=== PATIENT | female | born 1940 | race Hispanic/Latino ===

== ENCOUNTER 2018-08-20 21:24 | Emergency (ER) | payer MEDICARE ==
[~2018-08-20] VITALS: Ht 149.9 cm; Wt 73.0 kg
[2018-08-20 21:47] LABS: HEMATOCRIT 38.9 % (37.0-47.0); IMMATURE GRANULOCYTES 0.3 % (0.0-5.0); MEAN CELL VOLUME 88.8 fL CALC (80.0-100.0); MEAN CORPUSCULAR HGB 29.7 pG CALC (26.0-32.0); MEAN CORPUSCULAR HGB CONC 33.4 g/L CALC (32.0-36.0); NEUT# 5.34 thou/uL (2.00-7.15); RED BLOOD COUNT 4.38 mill/uL (4.20-5.60); RED CELL DISTRI WIDTH 12.7 % (11.5-15.5)
[2018-08-20 21:58] LABS: ALBUMIN 4.4 g/dL (3.2-5.0); ALKALINE PHOSPHATASE 168 u/l (38-126); ANION GAP 18 (6-22 (CALC)); BILIRUBIN, TOTAL 0.3 mg/dL (0.0-1.4); BUN 27 mg/dL (8-23); BUN/CREATININE RATIO 43 (12-20 (CALC)); CARBON DIOXIDE 27 mmol/l (22-30); CHLORIDE 99 mmol/l (95-108); CREATININE 0.6 mg/dL (0.5-1.0); GFR > 60 ML/MIN (>=60 (CALC)); GFR FOR AFR.AMER. > 60 ML/MIN (>=60 (CALC)); POTASSIUM 4.7 mmol/l (3.5-5.1); SGOT/AST 19 u/l (9-36); SODIUM 139 mmol/l (137-146); TOTAL PROTEIN 7.6 g/dL (6.3-8.2)
[2018-08-20 22:00] LABS: ACT PARTIAL THROMBO TIME 28.5 SECONDS (20.0-32.5)
[2018-08-20 22:10] LABS: MYOGLOBIN 33 ng/mL (0 - 62)
[2018-08-20 22:10] LABS: GFR > 60 ML/MIN (>=60 (CALC)); GFR FOR AFR.AMER. > 60 ML/MIN (>=60 (CALC))
[2018-08-20] MEDS ORDERED: GLIPIZIDE XL5 MG PO (22:12)
[2018-08-20] MEDS ORDERED: ENALAPRIL10 MG PO (22:13)
[2018-08-20] MEDS ORDERED: METFORMIN HYD1000 MG PO (22:14)
[2018-08-20] MEDS ORDERED: MOXIFLOXACIN OU (22:17)
[2018-08-20] MEDS ORDERED: (None)1 % OU (22:18)
[2018-08-20 23:38] LABS: URINE BILIRUBIN - DIPSTICK NEGATIVE (NEGATIVE); URINE BLOOD DIPSTICK NEGATIVE (NEGATIVE); URINE COLOR YELLOW; URINE GLUCOSE - DIPSTICK >=1000 mg/dL (NEGATIVE); URINE KETONE NEGATIVE (NEGATIVE); URINE LEUK ESTERASE NEGATIVE (NEGATIVE); URINE NITRITE - DIPSTICK NEGATIVE (Negative); URINE PROTEIN - DIPSTICK NEGATIVE (NEG-TRACE); URINE UROBILINOGEN - DIPSTICK 0.2 E.U./dL (0.2)
[2018-08-20 23:45] VITALS: BP 160/75
== END 2018-08-20 23:45 | disposition short-term general hospital (02) ==
LOC: ED 21:24
PROVIDERS: Emergency Medicine
DX: I63.9 Cerebral infarction, unspecified (principal); R29.810 Facial weakness; I10 Essential (primary) hypertension; E11.65 Type 2 diabetes mellitus with hyperglycemia; Z79.84 Long term (current) use of oral hypoglycemic drugs; R29.701 NIHSS score 1
CPT/HCPCS: Q9967

== ENCOUNTER 2018-10-26 16:56 | Emergency (ER) | payer MEDICARE ==
[~2018-10-26] VITALS: Ht 149.9 cm; Wt 80.0 kg
[~2018-10-26 16:56] MED LIST: (None)1 % OU; ENALAPRIL10 MG PO; GLIPIZIDE XL5 MG PO; METFORMIN HYD1000 MG PO; MOXIFLOXACIN OU
[2018-10-26 17:35] LABS: HEMATOCRIT 33.1 % (37.0-47.0); IMMATURE GRANULOCYTES 0.4 % (0.0-5.0); MEAN CELL VOLUME 89.9 fL CALC (80.0-100.0); MEAN CORPUSCULAR HGB 29.9 pG CALC (26.0-32.0); MEAN CORPUSCULAR HGB CONC 33.2 g/L CALC (32.0-36.0); NEUT# 5.07 thou/uL (2.00-7.15); RED BLOOD COUNT 3.68 mill/uL (4.20-5.60); RED CELL DISTRI WIDTH 13.2 % (11.5-15.5)
[2018-10-26 17:52] LABS: ALBUMIN 3.7 g/dL (3.2-5.0); ALKALINE PHOSPHATASE 136 u/l (38-126); ANION GAP 14 (6-22 (CALC)); BILIRUBIN, TOTAL 0.3 mg/dL (0.0-1.4); BUN 24 mg/dL (8-23); BUN/CREATININE RATIO 42 (12-20 (CALC)); CARBON DIOXIDE 22 mmol/l (22-30); CHLORIDE 107 mmol/l (95-108); CREATININE 0.6 mg/dL (0.5-1.0); GFR > 60 ML/MIN (>=60 (CALC)); GFR FOR AFR.AMER. > 60 ML/MIN (>=60 (CALC)); POTASSIUM 4.5 mmol/l (3.5-5.1); SGOT/AST 30 u/l (9-36); SODIUM 138 mmol/l (137-146); TOTAL PROTEIN 6.4 g/dL (6.3-8.2)
[2018-10-26 18:04] LABS: MYOGLOBIN 30 ng/mL (0 - 62)
[2018-10-26 18:37] LABS: URINE BILIRUBIN - DIPSTICK NEGATIVE (NEGATIVE); URINE BLOOD DIPSTICK NEGATIVE (NEGATIVE); URINE COLOR YELLOW; URINE GLUCOSE - DIPSTICK >=1000 mg/dL (NEGATIVE); URINE KETONE NEGATIVE (NEGATIVE); URINE LEUK ESTERASE NEGATIVE (NEGATIVE); URINE NITRITE - DIPSTICK NEGATIVE (Negative); URINE PROTEIN - DIPSTICK NEGATIVE (NEG-TRACE); URINE UROBILINOGEN - DIPSTICK 0.2 E.U./dL (0.2)
[2018-10-26] MEDS ORDERED: MECLIZINE25 MG PO (18:44)
[2018-10-26 19:02] VITALS: BP 134/71
== END 2018-10-26 19:12 | disposition home or self-care (01) ==
LOC: ED 16:56
PROVIDERS: Family Medicine
DX: R42 Dizziness and giddiness (principal); E11.65 Type 2 diabetes mellitus with hyperglycemia; I10 Essential (primary) hypertension; Z86.73 Personal history of transient ischemic attack (TIA), and cerebral infarction without residual deficits; Z79.84 Long term (current) use of oral hypoglycemic drugs

== ENCOUNTER 2020-07-11 18:20 | Emergency (ER) | payer MEDICARE ==
[~2020-07-11] VITALS: Ht 149.9 cm; Wt 63.0 kg
[~2020-07-11 18:20] MED LIST changes: +LANTUS SOL100 UNIT/M SC; +MECLIZINE25 MG PO; +PRAVASTATIN20 MG PO
[2020-07-11 18:53] LABS: HEMATOCRIT 36.7 % (37.0-47.0); HEMOGLOBIN 12.2 g/dl (12.0-16.0); IMMATURE GRANULOCYTES 0.8 % (0.0-5.0); MEAN CELL VOLUME 87.4 fL CALC (80.0-100.0); MEAN CORPUSCULAR HGB CONC 33.2 g/dL CAL (32.0-36.0); NEUT# 7.68 thou/uL (2.00-7.15); RED BLOOD COUNT 4.2 mill/uL (4.20-5.60); RED CELL DISTRI WIDTH 12.4 % (11.5-15.5)
[2020-07-11 19:03] LABS: URINE BILIRUBIN - DIPSTICK NEGATIVE (NEGATIVE); URINE BLOOD DIPSTICK TRACE-LYSED (NEGATIVE); URINE COLOR YELLOW; URINE GLUCOSE - DIPSTICK 250 mg/dL (NEGATIVE); URINE KETONE NEGATIVE (NEGATIVE); URINE LEUK ESTERASE NEGATIVE (NEGATIVE); URINE PROTEIN - DIPSTICK 30 mg/dL (NEG-TRACE); URINE SPECIFIC GRAVITY 1.015; URINE UROBILINOGEN - DIPSTICK 0.2 E.U./dL (0.2)
[2020-07-11 19:05] LABS: ALKALINE PHOSPHATASE 165 u/l (38-126); BUN 27 mg/dL (8-23); BUN/CREATININE RATIO 39 (12-20 (CALC)); CARBON DIOXIDE 26 mmol/l (22-30); CHLORIDE 96 mmol/l (95-108); CREATININE 0.7 mg/dL (0.5-1.0); GFR > 60 ML/MIN (>=60 (CALC)); GFR FOR AFR.AMER. > 60 ML/MIN (>=60 (CALC)); LIPASE 51 u/l (23-300); POTASSIUM 5.1 mmol/l (3.5-5.1); SGOT/AST 29 u/l (9-36)
[2020-07-11 19:07] LABS: URINE NITRITE - DIPSTICK NEGATIVE (Negative)
[2020-07-11 19:10] LABS: ANION GAP 12 (6-22 (CALC)); BILIRUBIN, TOTAL 0.5 mg/dL (0.0-1.4); SODIUM 129 mmol/l (137-146); TOTAL PROTEIN 7.8 g/dL (6.3-8.2)
[2020-07-11 19:12] LABS: ACT PARTIAL THROMBO TIME 27.7 SECONDS (20.0-32.5); PROTHROMBIN TIME 10.5 SECONDS (9.0-12.5)
[2020-07-11 19:14] LABS: URINE SQUAMOUS EPITHELIAL CELL FEW EPI/hpf (0-FEW); URINE WBC 0-2 WBC/hpf (0-5)
[2020-07-11 19:48] VITALS: BP 131/92
== END 2020-07-11 19:50 | disposition home or self-care (01) ==
LOC: ED 18:20
DX: I10 Essential (primary) hypertension (principal); E11.65 Type 2 diabetes mellitus with hyperglycemia; Z79.4 Long term (current) use of insulin; Z20.822 Contact with and (suspected) exposure to COVID-19

== ENCOUNTER 2020-07-13 20:41 | Observation (INO) | payer MEDICARE ==
[~2020-07-13] VITALS: Ht 149.9 cm; Wt 72.0 kg
--- NOTE | 2020-07-13 20:45 | NUR ---
BY WC TO ROOM. UNSTEADY GAIT
--- NOTE | 2020-07-13 20:45 | NUR ---
PT. TO ROOM 9 VIA W/C WITH C/O BY DAUGHTER THAT HER MOM HAS A WORSENING UNSTEADY GAIT AND VISION PROBLEMS. MD AT BEDSIDE. INITIAL STROKE SCALE IS 1 FOR GAZE PALSY. STROKE ALERT CALLED AT 2050. TO CT SCAN AT 2051.
[2020-07-13 21:12] LABS: HEMATOCRIT 37.4 % (37.0-47.0); HEMOGLOBIN 12.6 g/dl (12.0-16.0); IMMATURE GRANULOCYTES 0.2 % (0.0-5.0); MEAN CELL VOLUME 87.6 fL CALC (80.0-100.0); MEAN CORPUSCULAR HGB 29.5 pG CALC (26.0-32.0); MEAN CORPUSCULAR HGB CONC 33.7 g/dL CAL (32.0-36.0); NEUT# 6.11 thou/uL (2.00-7.15); RED BLOOD COUNT 4.27 mill/uL (4.20-5.60); RED CELL DISTRI WIDTH 12.6 % (11.5-15.5)
--- NOTE | 2020-07-13 21:19 | NUR ---
BP 209/136 MD AWARE, NEW ORDERS RECEIVED.
--- NOTE | 2020-07-13 21:26 | NUR ---
IV APRESOLINE GIVEN PER MD.
[2020-07-13 21:29] LABS: ALBUMIN 4.2 g/dL (3.2-5.0); ALKALINE PHOSPHATASE 158 u/l (38-126); ANION GAP 11 (6-22 (CALC)); BUN 28 mg/dL (8-23); BUN/CREATININE RATIO 40 (12-20 (CALC)); CARBON DIOXIDE 30 mmol/l (22-30); CHLORIDE 97 mmol/l (95-108); CREATININE 0.7 mg/dL (0.5-1.0); GFR > 60 ML/MIN (>=60 (CALC)); GFR FOR AFR.AMER. > 60 ML/MIN (>=60 (CALC)); POTASSIUM 4.5 mmol/l (3.5-5.1); SGOT/AST 35 u/l (9-36); SODIUM 133 mmol/l (137-146); TOTAL PROTEIN 8.2 g/dL (6.3-8.2)
[2020-07-13 21:30] LABS: ACT PARTIAL THROMBO TIME 25.6 SECONDS (20.0-32.5); BILIRUBIN, TOTAL 0.2 mg/dL (0.0-1.4); PROTHROMBIN TIME 10.5 SECONDS (9.0-12.5)
--- NOTE | 2020-07-13 21:44 | NUR ---
BP 104/70 MD AWARE.
--- NOTE | 2020-07-13 22:36 | NUR ---
IN ROOM TO DISCUSS CLINICAL FINDINGS WITH PT. VERBALIZED UNDERSTANDING.
[2020-07-13] MEDS ORDERED: LOSARTAN POTASS25 MG PO (23:19)
--- NOTE | 2020-07-13 23:36 | NUR ---
PT. MADE AWARE OF ADMISSION. VERBALIZED UNDERSTANDING.
--- NOTE | 2020-07-14 00:04 | NUR ---
Admission Note Report Given to: PAULINA HUBER Transported by: Wheelchair X Stretcher Transported with: X Nurse Transporter X Patent IV O2 X Framing Consultant Location: ICU X [facility]
--- NOTE | 2020-07-14 01:10 | NUR ---
PT. TAKEN TO MS FLOOR VIA STRETCHER. NO C/O OFFERED AT THIS TIME.
--- NOTE | 2020-07-14 01:10 | NUR ---
PT BROUGHT TO MED SURG BY [employer] SPANISH TEACHER CECILE AND MED SURG FLOOR CASHIER. WE TRANSFERRED HER FROM THE STRETCHER TO THE BED. PT TOLERATED WELL. SHE C/O PAIN UPON MOVING R.ARM, SENSATIVE TO MOVEMENT IN R.SHOULDER SHE REPORTS. L[employer] SCHO[employer] SPANISH TEACHER DISCUSSED MED HISTORY AND PRESENT COMPLAINTS WITH DAUGHTER WHILE IN THE ED TO PICK PT UP TO TRANSFER TO THE FLOOR. PT ASSESSED AT THIS TIME AND V/S OBTAINED. NEURO'S APPEAR TO BE INTACT, MEDICAL LABORATORY MANAGER ARE MODERATE, BUT EQUAL, EQUAL MOVEMENT TO BLE W/OUT DRIFT. PUPILS EQUAL AND REACTIVE. NO VISIBLE DROOP TO MOUTH AND EYEBROWS APPEAR TO BE SEMETRICAL. PT LOCX4 AT THIS TIME. WILL OBTAIN TRANSLATION FROM CECILE [facility] STAFF NEEDED.
[2020-07-14 01:15] VITALS: BP 162/74
--- NOTE | 2020-07-14 02:02 | NUR ---
PT APPEARS TO BE SLEEPING, APPEARS RELAXED WITH NON-LABORED RESPIRATIONS. LIGHTS TURNED DOWN FOR COMFORT.
--- NOTE | 2020-07-14 02:08 | NUR ---
CALLED TO OBTAIN INITIAL TELEMETRY READING ON PT, SR94 PER ED FERMENTER WINE
--- NOTE | 2020-07-14 02:24 | NUR ---
PT AWAKE WHEN I ENTERED THE ROOM. INSTRUCTIONS FOR NO NEEDLES TO R.ARM DUE TO NERVE PAIN WHEN STUCK IN THAT ARM PER DAUGHTER, DENIES SURGIERS OR LYMPH CONCERNS, REPORTS THAT BP CHECKS ARE OKAY, JUST NO LAB DRAWS TO R.ARM. PILLOW PROVIDED UNDER KNEES PER PT REQUEST FOR COMFORT. PO WATER OFFERED AGAIN AT THIS TIME AND LEFT AT BEDSIDE. PT REMINDED AND ORIENTED TO CALL LIGHT, VERBALIZED UNDERSTANDING, EXTRA COVERS PROVIDED ALSO AT THIS TIME.
[2020-07-14 04:00] VITALS: BP 153/70
--- NOTE | 2020-07-14 05:00 | NUR ---
PT SLEEPING, NO S/O DISTRESS NOTED AT THIS TIME. CALL LIGHT AT SIDE.
--- NOTE | 2020-07-14 06:14 | NUR ---
PT WAS AWAKE WHEN I ENTERED THE ROOM. IV PUMP CLEARED. PT ASKED FOR WATER THAT WAS ON HER BST W/IN REACH. I ATTEMPTED TO HAND IT TO HER, BUT SHE JUST OPENED HER MOUTH AND KEPT HER ARMS UNDER THE COVERS. I ASSISTED PT TO DRINK WATER AND REMINDED HER THAT IT IS W/IN REACH IF SHE NEEDS MORE. REMINDED HER OF THE CALL LIGHT FOR FURTHER ASSISTANCE. CALL LIGHT AT SIDE ON BST.
[2020-07-14 07:09] VITALS: BP 152/90
--- NOTE | 2020-07-14 07:10 | NUR ---
PATIENT LAYING IN BED AT THIS TIME. PATIENT WHEN ASKED IF SHE IS HAVING PAIN PATIENT STATED "NO". SED MIDDLE SCHOOL TEACHER DONE AT THIS TIME. PATIENT LUNG BARAJAS ARE CLEAR THROUGHOUT ALL LUNG BARAJAS. NEURO CHECKS ARE NEGATIVE FOR ANY DEFICITS AT THIS TIME. TELE IS IN PLACE AND BEING MONITORED BY ED. PURWICK IN PLACE AND DRAINING CLEAR YELLOW URINE AT THIS TIME. PATIENT IS PRIMARILY GERMAN SPEAKING BUT CAN UNDERSTAND ROMANIAN. PATIENT BOWEL SOUNDS ARE PRESENT IN ALL FOUR QUADRANTS. PATIENT STATES THAT HER VISION IS NOT "BLURRED" AT THIS TIME. SIDERAILS ARE UP CALL LIGHT WITHIN REACH.
--- NOTE | 2020-07-14 10:37 | NUR ---
PATIENT UP TO CHAIR AT THIS TIME. PATIENT DID ASSIST WITH STANDING AND WAS ASSITED BY THIS NURES AND NURSE AIDE. PATIENT DENIES ANY PAIN AT THIS TIME. CALL LIGHT WITHIN REACH PURWICK IN PLACE.
[2020-07-14 11:29] VITALS: BP 142/70
--- NOTE | 2020-07-14 11:59 | NUR ---
PATIENT SITTING UP IN CHAIR AT THIS TIME EATING LUNCH. CALL LIGHT WITHIN REACH NEURO CHECKS REMAIN NEGATIVE FOR DEFICITS. PATIENT DENIES ANY PAIN.
--- NOTE | 2020-07-14 15:45 | NUR ---
DAUGHTER IN WITH PATIENT AND CALLED THIS NURSE TO CHECK HER MOM'S ACCU-CHECK SHE STATED HER MOTHER SAID SHE IS STARTING TO FEEL "SWEATY". ACCU-CHECK DONE AND BLOOD GLUCOSE WAS RECORDED AT 48. PATIENT WAS SYMPTOMATIC AND ALERT AND ORIENTED AND WAS DIAPHERETIC. PATIENT GIVEN ORANGE JUICE AND SUGAR AND A BREAKFAST BAR AT THIS TIME. DAUGHTER STATED THAT HER MOTHER DOES THIS ALL THE TIME, AT HOME AND USUSALLY CORRECTS IT BY GIVING HER COOKIES AND OR OJ AND SUGAR. PATIENT WILL CONTINUE TO BE MONITORED.
--- NOTE | 2020-07-14 16:20 | NUR ---
ACCU CHECK DONE AT THIS TIME AND RESULTED AT 140. PATIENT SITTING UP IN CHAIR WITH DAUGHTER AT BEDSIDE. PATIENT STATES I "FEEL GOOD" PATINET IS NO LONGER SWEATING AND. TELE MONTIOR REMAINS IN PLACE AND CALL LIGHT IS WITHIN REACH. PURWICK IN PLACE AND DRAINING YELLOW URINE AT THIS TIME.
[2020-07-14 16:49] VITALS: BP 142/73
--- NOTE | 2020-07-14 17:56 | NUR ---
PATEINT RETURNED BACK TO BED AT THIS TIME. PATIENT DENEIES ANY PAIN AND IS SITTING UP IN BED EATING DINNER. SIDERAIL ARE UP X 2 CALL LIGHT IS WITHIN REACH PUR-WICK IN PLACE AND DRAINING.
[2020-07-14 20:00] VITALS: BP 213/95
--- NOTE | 2020-07-14 20:15 | NUR ---
PT AWAKE LOCX4, ASSISTED PT UP TO BSC AND BACK TO THE BED. NO STOOL OUTPUT AT THIS TIME, ONLY CLEAR YELLOW URINE. PT HELD HER OWN WEIGHT, BUT WAS VERY WEAK AND FEARFUL UPON AMBULATING, ONLY PIVOTING TO BSC AND BACK TO THE BED. ASSESSMENT COMPLETED AT THIS TIME. L.EYE APPEARED TO HAVE A SLIGHT DROOP, BUT WHEN I ASKED THE PT TO OPEN HER EYES, THEY APPEAR SYMETRICAL, BROWS APPEAR SYMETRICAL, SMILE SYMETRICAL AT THIS TIME. MANAGER POWER ARE EQUAL, SPEECH IS CLEAR. NO S/O DISTRESS NOTED, PT DENIES DIZZINESS OR PAIN AT THIS TIME. V/S ASSESSED ALSO AT THIS TIME. BP IS ELEVATED @213/95,HR70. WILL MEDICATED FOR ELEVATED BP ORDERS PROVIDE. ACCU-CHECK ALSO OBTAINED AT THIS TIME. SNACK PROVIDED
--- NOTE | 2020-07-14 21:42 | NUR ---
DAUGHTER CALLED TO GET AN UPDATE ON PT AND CHECK ON HER. SHE ASKED TO BE ABLE TO PLACE A PHONE CALL TO THE PHYSICIAN SEEING THE PT IN THE MORNING OR HAVE THEM CALL HER, WILL ALERT DAY NURSE TO THIS REQUEST. SHE ALSO REPORTS THAT SHE REMEMBERED THE EYE DOCTOR ON WEDNESDAY RECOMMENDING OTC EYE GEL LUBRICATING DROPS TO USE, THAT WERE USED. I TOLD HER THAT I WOULD PASS THIS INFORMATION ON TO THE PHYSICIAN CARING FOR HER MOTHER, BUT FOR HER TO ALSO DISCUSS THIS WITH HIM WHEN THEY TALK IN THE MORNING.
--- NOTE | 2020-07-14 22:04 | NUR ---
PT CALLED FOR SOMETHING SWEET TO EAT, PEANUT BUTTER, CRISPIN CRACKERS AND MILK PROVIDED AT THIS TIME. DENIES FEELING LIKE HER SUGAR IS LOW. SKIN WARM AND DRY.
[2020-07-15] VITALS: BP 116/48
--- NOTE | 2020-07-15 00:41 | NUR ---
PT SLEEPING, NO S/O DISTRESS NOTED.
--- NOTE | 2020-07-15 03:50 | NUR ---
v/s assessed and accu-check obtained. business operations analyst reported that pt's glucose level was 66, pt stated she did not want anything to eat or drink. I talked with her and advised that she eat something to keep her sugar from dropping further, I turned the lights on and brought her some juice and fruit/grain bar, he agreed to eat and drink these items.
[2020-07-15 04:00] VITALS: BP 131/62
--- NOTE | 2020-07-15 04:42 | NUR ---
PT ASKED FOR LIGHTS TO BE TURNED BACK DOWN AND HEAD LOWERED. I REMINDED HER HOW TO ADJUST THE BED FOR HERSELF AND TURN THE LIGHTS OFF. SHE FINISHED EATING HER FRUIT/GRAIN BAR AND 120CC OF JUICE.
[2020-07-15 05:46] LABS: HEMATOCRIT 32.5 % (37.0-47.0); HEMOGLOBIN 10.8 g/dl (12.0-16.0); IMMATURE GRANULOCYTES 0.3 % (0.0-5.0); MEAN CELL VOLUME 88.3 fL CALC (80.0-100.0); MEAN CORPUSCULAR HGB 29.3 pG CALC (26.0-32.0); MEAN CORPUSCULAR HGB CONC 33.2 g/dL CAL (32.0-36.0); NEUT# 6.17 thou/uL (2.00-7.15); RED BLOOD COUNT 3.68 mill/uL (4.20-5.60)
[2020-07-15 06:05] LABS: ALKALINE PHOSPHATASE 108 u/l (38-126); ANION GAP 9 (6-22 (CALC)); BILIRUBIN, TOTAL 0.2 mg/dL (0.0-1.4); BUN 23 mg/dL (8-23); BUN/CREATININE RATIO 38 (12-20 (CALC)); CARBON DIOXIDE 24 mmol/l (22-30); CHLORIDE 105 mmol/l (95-108); CREATININE 0.6 mg/dL (0.5-1.0); GFR > 60 ML/MIN (>=60 (CALC)); GFR FOR AFR.AMER. > 60 ML/MIN (>=60 (CALC)); POTASSIUM 4.2 mmol/l (3.5-5.1); SGOT/AST 26 u/l (9-36); SODIUM 134 mmol/l (137-146)
[2020-07-15 06:19] LABS: ALBUMIN 2.9 g/dL (3.2-5.0); TOTAL PROTEIN 5.9 g/dL (6.3-8.2)
--- NOTE | 2020-07-15 07:00 | NUR ---
PT REPORT RECEIVED FROM NIGHT NURSEPAULINA.
--- NOTE | 2020-07-15 08:00 | NUR ---
PT WAS FOUND RESTING IN BED;PT IS A&OX3;VS AMD ASSESSMENT WERE COMPLETED;PT HAS NO REPORTS OF PAIN AT THIS TIME;HEART SOUNDS ARE REGULAR IN RATE AND RHYTHM;TELE IS IN PLACE;LUNG SOUNDS ARE CLEAR IN ALL BARAJAS;RESPIRATIONS ARE EVEN AND UNLABORED ON RA;PT HAS A PUREWICK IN PLACE DRAINING CLEAR YELLOW URINE;PT HAS A DROOP IN HER LEFT EYE NOTED;THIS IS NOT NEW AND HAS BEEN PRESENT SINCE ADMISSION;#20G IV IN LAC IS RUNNING NS @125ML/HR;IV SITE APPEARS FREE OF COMPLICATIONS AT THIS TIME;SAFETY PRECAUTIONS IN PLACE;CALL LIGHT WITHIN REACH;PT ASKED TO CALL WITH ANY NEEDS OR CONCERNS;BED IN LOWEST POSITION;WILL CONTINUE TO MONITOR.
--- NOTE | 2020-07-15 09:22 | NUR ---
SPOKE WITH PT DAUGHTER;SHE WAS ASKING FOR AN UPDATE;ANSWERED ALL QUESTIONS TO HER SATISFACTION
[2020-07-15 10:35] VITALS: BP 153/72
--- NOTE | 2020-07-15 10:40 | NUR ---
AND GIULIANA LEHMAN AT BEDSIDE DISCUSSING POC WITH PT
--- NOTE | 2020-07-15 12:00 | NUR ---
PT WAS FOUND RESTING IN BEDSIDE CHAIR EATING LUNCH;PT HAS NO REPORTS OF PAIN AT THIS TIME;TELE IS IN PLACE;PUREWICK IN PLACE DRAINING CLEAR YELLOW URINE;SAFETY PRECAUTIONS IN PLACE;CALL LIGHT WITHIN REACH;WILL CONTINUE TO MONITOR.
--- NOTE | 2020-07-15 13:53 | NUR ---
PT WAS TRANSPORTED IN STABLE CONDITION VIA WC TO MRI ACCOMPANIED BY STAFF;
--- NOTE | 2020-07-15 15:00 | NUR ---
PT ARRIVED BACK TO FLOOR IN STABLE CONDITION VIA WC FROM MRI ACCOMPANIED BY STAFF.
[2020-07-15 15:19] VITALS: BP 135/72
--- NOTE | 2020-07-15 16:00 | NUR ---
PT WAS FOUND RESTING IN BEDSIDE CHAIR;PT DAUGHTER IS AT BEDSIDE VISITING;#20G IV IN LAC IS RUNNING NS@75ML/HR;IV SITE APPEARS FREE OF COMPLICATIONS AT THIS TIME;TELE IS IN PLACE;PUREWICK IS IN PLACE DRAINING CLEAR YELLOW URINE;SAFETY PRECAUTIONS IN PLACE;CALL LIGHT WITHIN REACH;WILL CONTINUE TO MONITOR.
--- NOTE | 2020-07-15 17:45 | NUR ---
CALL WAS MADE TO PT DAUGHTER;DISCHARGE INSTRUCTIONS WERE GIVEN TO DAUGHTER;DAUGHTER EXPRESSED UNDERSTANDING AND HAD NO FURTHER QUESTIONS;INFORMED DAUGHTER THAT SHE COULD PRODUCTION ADMINISTRATOR HER AT 1830.
--- NOTE | 2020-07-15 18:48 | NUR ---
Discharge instructions given. Patient verbalizes understanding of same. Discharged in stable condition via Wheelchair to Home with family. All belongings sent with pt. PT DISCHARGE INSTRUCTIONS WERE GIVEN TO DAUGHTER OVER THE PHONE;PT REQUESTED THAT DAUGHTER BE INFORMED AND A SIGNATURE OBTAINED FROM HER WELL;PT STATED SHE WAS UNABLE TO SIGN DUE TO THE BLURRED VISION; TELE WAS REMOVED;IV WAS REMOVED WITH NO COMPLICATIONS AND CATHETER INTACT; PT WAS TRANSPORTED TO [facility] IN STABLE CONDITION VIA ACCOMPANIED BY AUDIO VISUAL COORDINATOR;DISCHARGE PACKET WAS GIVEN TO DAUGHTER AND SIGNATURE WAS OBTAINED;ALL PT BELONGINGS WERE SENT WITH PT;PT WILL BE TRANSPORTED HOME WITH FAMILY.
== END 2020-07-15 18:45 | disposition home or self-care (01) ==
LOC: ED 20:41 → ED-I 22:28 → ED 22:43 → MS2 22:44
PROVIDERS: Family Medicine; Physician Assistant; ADMIT Internal Medicine; ATTEND Internal Medicine
DX: H49.02 Third [oculomotor] nerve palsy, left eye (principal); E87.1 Hypo-osmolality and hyponatremia; E11.65 Type 2 diabetes mellitus with hyperglycemia; D72.829 Elevated white blood cell count, unspecified; I10 Essential (primary) hypertension; E78.5 Hyperlipidemia, unspecified; Z79.4 Long term (current) use of insulin; Z20.822 Contact with and (suspected) exposure to COVID-19
CPT/HCPCS: G0378; J1650; Q9967

== ENCOUNTER 2023-04-17 21:32 | Emergency (ER) | payer MEDICARE ==
[~2023-04-17] VITALS: Ht 149.9 cm; Wt 64.9 kg
[~2023-04-17 21:32] MED LIST changes: +LOSARTAN POTASS25 MG PO
[2023-04-17] MEDS ORDERED: INSULIN REGULAR (HUMAN) 100 UNIT/ML INJ IV ONE (22:40)
[2023-04-17] MEDS ORDERED: ENALAPRILAT 1.25 MG/ML 1ML IV ONE (23:05)
[2023-04-17 23:43] LABS: ALBUMIN 3.1 g/dL (3.2-5.0); CREATININE 1.2 mg/dL (0.5-1.0); POTASSIUM 4.4 mmol/l (3.5-5.1); TOTAL PROTEIN 6.1 g/dL (6.3-8.2)
[2023-04-17 23:48] LABS: BILIRUBIN, TOTAL 0.1 mg/dL (0.02-1.3)
[2023-04-18 00:03] LABS: BASO% 0.5 % (0-3); EOS% 4.5 % (0-8); HEMATOCRIT 29.7 % (37.0-47.0); IMMATURE GRANULOCYTES 0.4 % (0.0-5.0); LYMPH% 23.4 % (15-41); MEAN CELL VOLUME 90.3 fL CALC (80.0-100.0); MEAN CORPUSCULAR HGB 30.4 pG CALC (26.0-32.0); MEAN CORPUSCULAR HGB CONC 33.7 g/dL CAL (32.0-36.0); MONO% 7.6 % (2-13); NEUT# 5.28 thou/uL (2.00-7.15); NEUT% 63.6 % (42-76); RED BLOOD COUNT 3.29 mill/uL (4.20-5.60); RED CELL DISTRI WIDTH 12.6 % (11.5-15.5)
[2023-04-18 00:25] VITALS: BP 159/76
== END 2023-04-18 00:42 | disposition home or self-care (01) ==
LOC: ED 21:32
PROVIDERS: Emergency Medicine
DX: E11.65 Type 2 diabetes mellitus with hyperglycemia (principal); I10 Essential (primary) hypertension; E78.5 Hyperlipidemia, unspecified; Z79.84 Long term (current) use of oral hypoglycemic drugs; Z79.4 Long term (current) use of insulin

== ENCOUNTER 2023-11-12 11:14 | Inpatient (IN) | payer MEDICARE ==
[~2023-11-12] VITALS: Ht 149.9 cm; Wt 94.8 kg
[2023-11-12] VITALS (20 sets, daily range): BP systolic 115–169; BP diastolic 46–77
[2023-11-12 12:07] LABS: BASO% 0.4 % (0-3); EOS% 3.8 % (0-8); HEMATOCRIT 24.7 % (37.0-47.0); HEMOGLOBIN 8.1 g/dl (12.0-16.0); IMMATURE GRANULOCYTES 0.9 % (0.0-5.0); LYMPH% 12.7 % (15-41); MEAN CELL VOLUME 88.2 fL CALC (80.0-100.0); MEAN CORPUSCULAR HGB 28.9 pG CALC (26.0-32.0); MEAN CORPUSCULAR HGB CONC 32.8 g/dL CAL (32.0-36.0); MONO% 4.3 % (2-13); NEUT# 7.8 thou/uL (2.00-7.15); NEUT% 77.9 % (42-76); RED BLOOD COUNT 2.8 mill/uL (4.20-5.60); RED CELL DISTRI WIDTH 17.8 % (11.5-15.5)
[2023-11-12 12:16] LABS: ALBUMIN 3.3 g/dL (3.2-5.0); ALKALINE PHOSPHATASE 277 u/l (38-126); CHLORIDE 111 mmol/l (95-108); CREATININE 1.9 mg/dL (0.5-1.0); ESTIMATED GFR 26 ML/MIN (>=90 (CALC)); SGOT/AST 36 u/l (9-36); SODIUM 134 mmol/l (137-146); TOTAL PROTEIN 6.7 g/dL (6.3-8.2)
[2023-11-12 13:03] LABS: ANION GAP 9 (6-22 (CALC)); BILIRUBIN, TOTAL 0.3 mg/dL (0.02-1.3); BUN 64 mg/dL (8-23); BUN/CREATININE RATIO 34 (12-20 (CALC)); CARBON DIOXIDE 19 mmol/l (22-30); POTASSIUM 5.3 mmol/l (3.5-5.1)
[2023-11-12 13:36] LABS: URINE BILIRUBIN - DIPSTICK Negative (NEGATIVE); URINE BLOOD DIPSTICK Negative (NEGATIVE); URINE COLOR Straw; URINE GLUCOSE - DIPSTICK 100 mg/dL (NEGATIVE); URINE KETONE Negative (NEGATIVE); URINE LEUK ESTERASE Small (NEGATIVE); URINE NITRITE - DIPSTICK Negative (Negative); URINE PH 5.5 (4.5-8.0); URINE PROTEIN - DIPSTICK 100 mg/dL (NEG-TRACE); URINE UROBILINOGEN - DIPSTICK 0.2 E.U./dL (0.2)
[2023-11-12 13:41] LABS: URINE AMORPH SEDIMENT MANY hpf (NONE-FEW); URINE BACTERIA FEW hpf; URINE RBC 0-2 RBC/hpf (0-5); URINE SQUAMOUS EPITHELIAL CELL FEW EPI/hpf (0-FEW); URINE TRANSITIONAL EPI. CELLS FEW hpf
[2023-11-12] MEDS ORDERED: AZITHROMYCIN 500 MG/VIAL SDV IV ONE (14:00)
[2023-11-12] MEDS ORDERED: LANTUS100 UNIT SC (14:20)
[2023-11-12] MEDS ORDERED: HYDRALAZINE HYD25 MG PO (14:21)
[2023-11-12] MEDS ORDERED: NORVASC10 M1 PO (14:21)
[2023-11-12] MEDS ORDERED: ASPIRIN 81 LOW81 MG PO (14:21)
[2023-11-12] MEDS ORDERED: LASIX20 MG PO (14:22)
[2023-11-12] MEDS ORDERED: ATORVASTATIN CA20 MG PO (14:23)
[2023-11-12] MEDS ORDERED: ONDANSETRON HCl 4 MG/2 ML SDV IV PRN (14:25)
[2023-11-12] MEDS ORDERED: ACETAMINOPHEN 325 MG/TAB PO PRN (14:25)
[2023-11-12] MEDS ORDERED: DEXTROSE 250 ML IV PRN (14:25)
[2023-11-12] MEDS ORDERED: AZITHROMYCIN 500 MG in SODIUM CHLORIDE 0.9% 250 ML IV SCH (14:30)
[2023-11-12] MEDS ORDERED: FUROSEMIDE 40 MG/4 ML SDV IV SCH (15:00)
[2023-11-12] MEDS ORDERED: hydrALAZINE HCL 25 MG/TAB PO SCH (15:00)
[2023-11-12] MEDS ORDERED: IPRATROPIUM-Albuterol 0.5MG-2.5MG/3 ML NEB PRN (15:00)
[2023-11-12] MEDS ORDERED: INSULIN LISPRO 100 UNITS/ML ML SC SCH (17:00)
[2023-11-12] MEDS ORDERED: MAGNESIUM HYDROXIDE 30 ML UDC PO PRN (21:00)
[2023-11-13] VITALS (8 sets, daily range): BP systolic 130–157; BP diastolic 60–68
[2023-11-13 05:21] LABS: BASO% 0.5 % (0-3); EOS% 6.1 % (0-8); HEMATOCRIT 23.4 % (37.0-47.0); HEMOGLOBIN 7.6 g/dl (12.0-16.0); IMMATURE GRANULOCYTES 0.3 % (0.0-5.0); MEAN CORPUSCULAR HGB 28.9 pG CALC (26.0-32.0); MEAN CORPUSCULAR HGB CONC 32.5 g/dL CAL (32.0-36.0); MONO% 7.1 % (2-13); NEUT# 6.35 thou/uL (2.00-7.15); RED BLOOD COUNT 2.63 mill/uL (4.20-5.60); RED CELL DISTRI WIDTH 18.3 % (11.5-15.5)
[2023-11-13 05:32] LABS: ALBUMIN 2.8 g/dL (3.2-5.0); ALKALINE PHOSPHATASE 238 u/l (38-126); BILIRUBIN, TOTAL 0.2 mg/dL (0.02-1.3); BUN 62 mg/dL (8-23); BUN/CREATININE RATIO 34 (12-20 (CALC)); CREATININE 1.8 mg/dL (0.5-1.0); ESTIMATED GFR 27 ML/MIN (>=90 (CALC)); MAGNESIUM 1.8 mg/dL (1.6-2.3); SGOT/AST 29 u/l (9-36); TOTAL PROTEIN 5.7 g/dL (6.3-8.2)
[2023-11-13 05:38] LABS: CHLORIDE 110 mmol/l (95-108); SODIUM 137 mmol/l (137-146)
[2023-11-13 05:41] LABS: ANION GAP 9 (6-22 (CALC)); CARBON DIOXIDE 23 mmol/l (22-30); POTASSIUM 5.2 mmol/l (3.5-5.1)
[2023-11-13] MEDS ORDERED: SODIUM ZIRCONIUM CYCLOSILICATE 10 GM PAK PO SCH (09:00)
[2023-11-13] MEDS ORDERED: amLODIPine BESYLATE 5 MG/TAB PO SCH (09:00)
[2023-11-13] MEDS ORDERED: ASPIRIN 81 MG/TAB PO SCH (09:00)
[2023-11-13] MEDS ORDERED: ATORVASTATIN CALCIUM 20 MG/TAB PO SCH (09:00)
[2023-11-13] MEDS ORDERED: INSULIN DETEMIR 100 UNITS/ML SC SCH ×2 (09:00→09:30)
[2023-11-13] MEDS ORDERED: Pantoprazole Sodium 40 MG VIAL (Protonix) IV SCH (11:30)
[2023-11-13 13:45] LABS: HEMATOCRIT 24.8 % (37.0-47.0); HEMOGLOBIN 8.2 g/dl (12.0-16.0)
[2023-11-13 13:57] LABS: CREATININE 1.8 mg/dL (0.5-1.0); POTASSIUM 5.1 mmol/l (3.5-5.1)
[2023-11-13] MEDS ORDERED: PANTOPRAZOLE SODIUM Sesquihydr 40 MG/TAB PO SCH (21:00)
[2023-11-14] VITALS (10 sets, daily range): BP systolic 131–152; BP diastolic 56–69
[2023-11-14 05:03] LABS: BASO% 0.5 % (0-3); EOS% 6.2 % (0-8); HEMATOCRIT 24.3 % (37.0-47.0); HEMOGLOBIN 7.8 g/dl (12.0-16.0); IMMATURE GRANULOCYTES 0.5 % (0.0-5.0); LYMPH% 22.2 % (15-41); MEAN CELL VOLUME 89.3 fL CALC (80.0-100.0); MEAN CORPUSCULAR HGB 28.7 pG CALC (26.0-32.0); MEAN CORPUSCULAR HGB CONC 32.1 g/dL CAL (32.0-36.0); MONO% 6.2 % (2-13); NEUT# 5.18 thou/uL (2.00-7.15); NEUT% 64.4 % (42-76); RED BLOOD COUNT 2.72 mill/uL (4.20-5.60); RED CELL DISTRI WIDTH 17.9 % (11.5-15.5)
[2023-11-14 05:27] LABS: ALBUMIN 2.7 g/dL (3.2-5.0); BILIRUBIN, TOTAL 0.2 mg/dL (0.02-1.3); MAGNESIUM 1.8 mg/dL (1.6-2.3); POTASSIUM 4.6 mmol/l (3.5-5.1); TOTAL PROTEIN 5.7 g/dL (6.3-8.2)
[2023-11-14] MEDS ORDERED: cefTRIAXone SODIUM 2 GM in SODIUM CHLORIDE 0.9% 100 ML IV SCH (14:00)
[2023-11-14] MEDS ORDERED: SENNOSIDES-Docusate Sodium 1 COMBO TAB PO SCH (21:00)
[2023-11-15 03:02] VITALS: BP 148/61
[2023-11-15 03:38] VITALS: BP 148/61
[2023-11-15 04:52] LABS: BASO% 0.4 % (0-3); EOS% 4.9 % (0-8); HEMOGLOBIN 7.6 g/dl (12.0-16.0); IMMATURE GRANULOCYTES 0.3 % (0.0-5.0); LYMPH% 18.4 % (15-41); MEAN CELL VOLUME 88.8 fL CALC (80.0-100.0); MEAN CORPUSCULAR HGB 29.3 pG CALC (26.0-32.0); MONO% 8.1 % (2-13); NEUT# 6.41 thou/uL (2.00-7.15); NEUT% 67.9 % (42-76); RED BLOOD COUNT 2.59 mill/uL (4.20-5.60); RED CELL DISTRI WIDTH 17.6 % (11.5-15.5)
[2023-11-15 05:06] LABS: ALBUMIN 2.6 g/dL (3.2-5.0); MAGNESIUM 1.7 mg/dL (1.6-2.3); POTASSIUM 4.5 mmol/l (3.5-5.1)
[2023-11-15 10:55] VITALS: BP 154/64
[2023-11-15] MEDS ORDERED: PIPERACILLIN Sodium-Tazobactam 2.25 GM in SODIUM CHLORIDE 0.9% 50 ML IV SCH (11:00)
[2023-11-15] MEDS ORDERED: IPRATROPIUM-Albuterol 0.5MG-2.5MG/3 ML NEB SCH (11:00)
[2023-11-15 15:28] VITALS: BP 149/57
[2023-11-15 20:55] VITALS: BP 137/55
[2023-11-16] VITALS (10 sets, daily range): BP systolic 133–155; BP diastolic 48–62
[2023-11-16 05:33] LABS: BASO% 0.3 % (0-3); EOS% 1.3 % (0-8); HEMATOCRIT 23.7 % (37.0-47.0); HEMOGLOBIN 7.7 g/dl (12.0-16.0); IMMATURE GRANULOCYTES 0.9 % (0.0-5.0); LYMPH% 12.3 % (15-41); MEAN CELL VOLUME 88.4 fL CALC (80.0-100.0); MEAN CORPUSCULAR HGB 28.7 pG CALC (26.0-32.0); MEAN CORPUSCULAR HGB CONC 32.5 g/dL CAL (32.0-36.0); MONO% 7.5 % (2-13); NEUT# 9.08 thou/uL (2.00-7.15); NEUT% 77.7 % (42-76); RED BLOOD COUNT 2.68 mill/uL (4.20-5.60); RED CELL DISTRI WIDTH 17.2 % (11.5-15.5)
[2023-11-16 06:15] LABS: ALBUMIN 2.6 g/dL (3.2-5.0); ALKALINE PHOSPHATASE 208 u/l (38-126); ANION GAP 7 (6-22 (CALC)); BILIRUBIN, TOTAL 0.2 mg/dL (0.02-1.3); BUN 48 mg/dL (8-23); BUN/CREATININE RATIO 23 (12-20 (CALC)); CARBON DIOXIDE 28 mmol/l (22-30); CHLORIDE 104 mmol/l (95-108); CREATININE 2.1 mg/dL (0.5-1.0); ESTIMATED GFR 23 ML/MIN (>=90 (CALC)); MAGNESIUM 1.6 mg/dL (1.6-2.3); POTASSIUM 4.1 mmol/l (3.5-5.1); SGOT/AST 46 u/l (9-36); SODIUM 135 mmol/l (137-146); TOTAL PROTEIN 5.6 g/dL (6.3-8.2)
[2023-11-16] MEDS ORDERED: SODIUM CHLORIDE 0.9% 500 ML IV PRN (08:35)
[2023-11-16] MEDS ORDERED: FUROSEMIDE 40 MG/4 ML SDV IV SCH (09:00)
[2023-11-16] MEDS ORDERED: FUROSEMIDE 40 MG/4 ML SDV IV PRN (09:00)
[2023-11-16] MEDS ORDERED: Cholecalciferol 2,000 UNIT/TAB PO SCH (14:00)
[2023-11-17] VITALS (10 sets, daily range): BP systolic 120–154; BP diastolic 41–65
[2023-11-17 05:53] LABS: BASO% 0.2 % (0-3); EOS% 3.2 % (0-8); HEMATOCRIT 24.8 % (37.0-47.0); HEMOGLOBIN 8.4 g/dl (12.0-16.0); IMMATURE GRANULOCYTES 0.2 % (0.0-5.0); MEAN CELL VOLUME 87.9 fL CALC (80.0-100.0); MEAN CORPUSCULAR HGB 29.8 pG CALC (26.0-32.0); MEAN CORPUSCULAR HGB CONC 33.9 g/dL CAL (32.0-36.0); MONO% 7.9 % (2-13); NEUT# 8.21 thou/uL (2.00-7.15); NEUT% 78.5 % (42-76); RED BLOOD COUNT 2.82 mill/uL (4.20-5.60); RED CELL DISTRI WIDTH 16.9 % (11.5-15.5)
[2023-11-17 05:57] LABS: ALBUMIN 2.7 g/dL (3.2-5.0); BILIRUBIN, TOTAL 0.2 mg/dL (0.02-1.3); CREATININE 2.1 mg/dL (0.5-1.0); MAGNESIUM 1.9 mg/dL (1.6-2.3); POTASSIUM 4.2 mmol/l (3.5-5.1); TOTAL PROTEIN 5.6 g/dL (6.3-8.2)
[2023-11-17] MEDS ORDERED: FUROSEMIDE 40 MG/TAB PO SCH (09:00)
[2023-11-17] MEDS ORDERED: EPOETIN ALFA-EPBX 20,000 UNIT/ML VIAL SC SCH (09:00)
[2023-11-17] MEDS ORDERED: INSULIN DETEMIR 100 UNITS/ML SC SCH (11:00)
[2023-11-18] VITALS (8 sets, daily range): BP systolic 131–164; BP diastolic 48–68
[2023-11-18 05:36] LABS: BASO% 0.3 % (0-3); EOS% 5.6 % (0-8); HEMATOCRIT 27.7 % (37.0-47.0); IMMATURE GRANULOCYTES 0.4 % (0.0-5.0); LYMPH% 8.1 % (15-41); MEAN CELL VOLUME 88.8 fL CALC (80.0-100.0); MEAN CORPUSCULAR HGB 28.8 pG CALC (26.0-32.0); MEAN CORPUSCULAR HGB CONC 32.5 g/dL CAL (32.0-36.0); MONO% 5.8 % (2-13); NEUT# 8.45 thou/uL (2.00-7.15); NEUT% 79.8 % (42-76); RED BLOOD COUNT 3.12 mill/uL (4.20-5.60)
[2023-11-18 05:59] LABS: ALBUMIN 2.9 g/dL (3.2-5.0); BILIRUBIN, TOTAL 0.2 mg/dL (0.02-1.3); CREATININE 2.2 mg/dL (0.5-1.0); POTASSIUM 4.7 mmol/l (3.5-5.1); TOTAL PROTEIN 6.2 g/dL (6.3-8.2)
[2023-11-18] MEDS ORDERED: MAGNESIUM HYDROXIDE 30 ML UDC PO PRN (07:38)
[2023-11-18] MEDS ORDERED: IPRATROPIUM-Albuterol 0.5MG-2.5MG/3 ML NEB PRN (08:22)
[2023-11-18] MEDS ORDERED: PANTOPRAZOLE SODIUM Sesquihydr 40 MG/TAB PO SCH (09:00)
[2023-11-18] MEDS ORDERED: DOXYCYCLINE100 MG PO (10:17)
[2023-11-18] MEDS ORDERED: HYDROcodone 5 MG/Acetaminophen 325 MG/COMBO PO PRN (12:45)
[2023-11-18] MEDS ORDERED: LIDOCAINE 4 % PATCH TD SCH (13:00)
[2023-11-18] MEDS ORDERED: SODIUM CHLORIDE 0.9% 0 ML IV ONE (14:26)
[2023-11-19 04:39] VITALS: BP 154/65
[2023-11-19 07:04] VITALS: BP 164/70
[2023-11-19 07:31] VITALS: BP 164/70
[2023-11-19] MEDS ORDERED: LEVOFLOXACIN750 MG PO (09:39)
[2023-11-19 11:36] VITALS: BP 151/68
[2023-11-19 11:47] VITALS: BP 151/68
== END 2023-11-19 15:33 | disposition home health service (06) | DRG 177 ==
LOC: ED 11:14 → ED-I 12:59 → ED 12:59 → ED-I 13:35 → ED 13:47 → MS2 13:48
PROVIDERS: Family Medicine; Nurse Practitioner Family; ADMIT Student in an Organized Health Care Education/Training Program; ATTEND Student in an Organized Health Care Education/Training Program
PROC: 0T9B70Z Drainage of Bladder with Drainage Device, Via Natural or Artificial Opening (ICD-10-PCS; principal; 2023-11-12)
PROC: 30233N1 Transfusion of Nonautologous Red Blood Cells into Peripheral Vein, Percutaneous Approach (ICD-10-PCS; 2023-11-16)
DX: J15.1 Pneumonia due to Pseudomonas (principal); I50.33 Acute on chronic diastolic (congestive) heart failure; J96.01 Acute respiratory failure with hypoxia; E87.1 Hypo-osmolality and hyponatremia; I13.0 Hypertensive heart and chronic kidney disease with heart failure and stage 1 through stage 4 chronic kidney disease, or unspecified chronic kidney disease; N17.9 Acute kidney failure, unspecified; N30.00 Acute cystitis without hematuria; E11.22 Type 2 diabetes mellitus with diabetic chronic kidney disease; D63.1 Anemia in chronic kidney disease; N18.31 Chronic kidney disease, stage 3a; E11.65 Type 2 diabetes mellitus with hyperglycemia; R91.8 Other nonspecific abnormal finding of lung field; R33.9 Retention of urine, unspecified; E87.5 Hyperkalemia; R62.7 Adult failure to thrive; I08.3 Combined rheumatic disorders of mitral, aortic and tricuspid valves; E55.9 Vitamin D deficiency, unspecified; M19.011 Primary osteoarthritis, right shoulder; B96.1 Klebsiella pneumoniae [K. pneumoniae] as the cause of diseases classified elsewhere; Y95 Nosocomial condition; Z66 Do not resuscitate; Z68.31 Body mass index [BMI] 31.0-31.9, adult; Z86.73 Personal history of transient ischemic attack (TIA), and cerebral infarction without residual deficits; Z79.4 Long term (current) use of insulin; Z20.822 Contact with and (suspected) exposure to COVID-19
CPT/HCPCS: J0456; J2470; P9016